=== PATIENT | female | born 1960 | race Caucasian/White ===

== ENCOUNTER 2020-11-10 01:04 | Inpatient (IN) | payer OTHER, MEDICARE ==
[2020-11-10 01:32] LABS: Hemoglobin 14.3 g/dL (12.0-16.0); Mean Corpuscular HGB CONC 32.1 g/dL (32.0-36.0); Mean Corpuscular Hemoglobin 27.1 pg (27.0-31.0); Mean Corpuscular Volume 84.5 fL (78.0-98.0); Mean Platelet Volume 8.8 fL (7.4-10.4); Platelet Count 397 thou/uL (130-400); RBC Distribution Width 15.1 % (11.5-14.5); Red Blood Cell (RBC) Count 5.27 mill/uL (4.20-5.40); White Blood Cell (WBC) Count 19.7 thou/uL (4.8-10.8)
[2020-11-10 01:49] LABS: ALT (SGPT) 21 U/L (8-55); AST (SGOT) 91 U/L (5-34); Acetaminophen Less than 6.0 mcg/mL (10.0-30.0); Albumin 3.8 g/dL (3.5-5.0); Alcohol Less than 10 mg/dL (Less than 10); Alkaline Phosphatase 133 U/L (40-110); Anion Gap 25 mmol/L (10-20); BUN (Urea Nitrogen) 19 mg/dL (9.8-20.1); Bilirubin, Total 0.4 mg/dL (0.2-1.2); Calc. Creatinine Clearance 0 mL/min (70-130); Calcium 8.9 mg/dL (7.8-10.44); Carbon Dioxide 13 mmol/L (22-29); Chloride 102 mmol/L (98-107); Glucose 163 mg/dL (70-105); Potassium 4.6 mmol/L (3.5-5.1); Protein, Total 7.8 g/dL (6.0-8.3); Salicylate Less than 8.0 mg/dL (15.0-30.0); Sodium 135 mmol/L (136-145)
[2020-11-10 01:52] LABS: Band 5 % (5-11); Lymphocytes 11 % (21-51); MDiff Complete? YES; Neutrophil 84 % (42-75)
[2020-11-10] MEDS ORDERED: Dextrose 5% in Water 1,000 ML IV PRN (04:28)
[2020-11-10] MEDS ORDERED: hydrALAZINE 20 MG/ML VIAL SLOW IVP PRN (04:28)
[2020-11-10] MEDS ORDERED: Dextrose 50% Abboject 50 ML SYRINGE SLOW IVP PRN (04:28)
[2020-11-10] MEDS ORDERED: Ondansetron ODT 4 MG TAB PO PRN (04:28)
[2020-11-10] MEDS ORDERED: Ibuprofen 600 MG TAB PO PRN (04:53)
[2020-11-10 05:50] VITALS: BMI 40.5
[2020-11-10] MEDS: traMADol HCl 50 MG TAB PO SCH ×3 (06:34→18:16)
[2020-11-10] MEDS: Acetaminophen 325 MG TAB PO SCH ×3 (06:34→16:43)
[2020-11-10] MEDS ORDERED: Lactated Ringer's 1,000 ML IV SCH (06:45)
[2020-11-10 08:25] LABS: Magnesium 2.2 mg/dL (1.6-2.6)
[2020-11-10] MEDS ORDERED: HumaLOG 300 UNITS/3 ML VIAL SC PRN (08:58)
[2020-11-10] MEDS ORDERED: Sodium Chloride 0.9% 500 ML IV SCH (10:15)
[2020-11-10 10:20] LABS: #Eosinphils 0.1 thou/uL (0.0-0.7); #Lymphocytes 1.3 thou/uL (1.20-3.40); #Monocytes 0.4 thou/uL (0.11-0.59); #Neutrophils 15.2 thou/uL (1.40-6.50); %Basophils 0.1 % (0.0-1.0); %Eosinophils 0.3 % (0.0-10.0); %Lymphocytes 7.4 % (21.0-51.0); %Monocytes 2.3 % (0.0-10.0); %Neutrophils 89.9 % (42.0-75.0); Mean Corpuscular HGB CONC 32.7 g/dL (32.0-36.0); Mean Corpuscular Hemoglobin 27.6 pg (27.0-31.0); Mean Corpuscular Volume 84.4 fL (78.0-98.0); Mean Platelet Volume 8.3 fL (7.4-10.4); Platelet Count 464 thou/uL (130-400); White Blood Cell (WBC) Count 16.9 thou/uL (4.8-10.8)
[2020-11-10] MEDS: Polyethylene Glycol 3350 17 GM Packet PO SCH (10:21)
[2020-11-10 10:31] LABS: Thyroid Stimulating Hormone 0.0583 uIU/mL (0.35-4.94)
[2020-11-10 10:43] LABS: Anion Gap 25 mmol/L (10-20); BUN (Urea Nitrogen) 21 mg/dL (9.8-20.1); Calc. Creatinine Clearance 93 mL/min (70-130); Carbon Dioxide 12 mmol/L (22-29); Chloride 103 mmol/L (98-107); Glucose 307 mg/dL (70-105); Magnesium 2.2 mg/dL (1.6-2.6); Phosphorus 5.2 mg/dL (2.3-4.7); Potassium 4.7 mmol/L (3.5-5.1); Sodium 135 mmol/L (136-145)
[2020-11-10] MEDS: Famotidine 20 MG TAB PO SCH ×2 (10:44→23:38)
[2020-11-10] MEDS: Propranolol 40 MG TAB PO SCH ×2 (10:44→23:38)
[2020-11-10 10:56] LABS: Hemoglobin A1c Greater than 14.0 % (4.0-6.0)
[2020-11-10] MEDS: Sodium Chloride 0.9% 1,000 ML IV SCH ×2 (11:29→18:16)
[2020-11-10] MEDS ORDERED: Iopamidol-370 76% 500 ML 1 ML ONE (12:00)
[2020-11-10] MEDS ORDERED: Lantus 1000 UNITS/10 ML VIAL SC SCH (14:45)
[2020-11-10 17:14] LABS: Bacteria/HPF 2+ HPF (None Seen); Bilirubin 2+ (Negative); Blood, Urine 2+ (Negative); Clarity Turbid (Clear); Glucose, Urine (Dipstick) 30 mg/dL (Negative); Ketone, Urine 20 mg/dL (Negative); Leukocyte Negative Leu/uL (Negative); Nitrite Negative (Negative); Protein, Urine (Dipstick) 200 mg/dL (Neg-Trace); RBC/HPF 21-50 HPF (0-3); Squamous Epithelial 0-3 HPF (0-3); Transitional Epithelial 0-3 HPF (None Seen); Urobilinogen 3 mg/dL (Less than 2); WBC/HPF 21-50 HPF (0-3)
[2020-11-10 17:16] LABS: Specific Gravity, Urine 1.056 (1.002-1.036)
[2020-11-10 17:59] LABS: SARS-CoV-2 PCR by NAA Not Detected (NotDetected)
[2020-11-10 19:17] LABS: Anion Gap 19 mmol/L (10-20); BUN (Urea Nitrogen) 25 mg/dL (9.8-20.1); Calc. Creatinine Clearance 76 mL/min (70-130); Calcium 7.8 mg/dL (7.8-10.44); Carbon Dioxide 16 mmol/L (22-29); Chloride 106 mmol/L (98-107); Glucose 157 mg/dL (70-105); Magnesium 2.2 mg/dL (1.6-2.6); Phosphorus 3.8 mg/dL (2.3-4.7); Potassium 3.8 mmol/L (3.5-5.1); Sodium 137 mmol/L (136-145)
[2020-11-10] MEDS ORDERED: traMADol HCl 50 MG TAB PO PRN (20:00)
[2020-11-10 20:43] LABS: Actual Bicarbonate (HCO3v) 19 mEq/L (22-28); Base Excess -3.2 mEq/L (-2.0 to +3.0); Calcium, Ionized (venous) 0.97 mmol/L (1.16-1.32); Chloride (VBG) 107 mmol/L (98-106); Hemoglobin (Hb) 11.1 g/dL (11.7-16.0); Potassium (VBG) 3.76 mmol/L (3.70-5.30); Sodium 137.6 mmol/L (133-146); pH (venous) 7.47 (7.32-7.43)
[2020-11-10] MEDS ORDERED: Calcium Chloride 13.6 MEQ in Sodium Chloride 0.9% 100 ML IVPB SCH (23:00)
[2020-11-11] MEDS: Acetaminophen 325 MG TAB PO SCH ×4 (05:47→16:07)
[2020-11-11] MEDS: traMADol HCl 50 MG TAB PO SCH ×4 (05:49→11:14)
[2020-11-11 05:52] LABS: Bacteria/HPF None Seen HPF (None Seen); Bilirubin 1+ (Negative); Blood, Urine 3+ (Negative); Clarity Extra Turbid (Clear); Glucose, Urine (Dipstick) Normal (Negative); Ketone, Urine 40 mg/dL (Negative); Leukocyte 25 Leu/uL (Negative); Nitrite Negative (Negative); Protein, Urine (Dipstick) 70 mg/dL (Neg-Trace); RBC/HPF Greater than 50 HPF (0-3); Specific Gravity, Urine 1.041 (1.002-1.036); Urobilinogen Normal mg/dL (Less than 2); pH, Urine 5.5 (5.0-9.0)
[2020-11-11] MEDS: Polyethylene Glycol 3350 17 GM Packet PO SCH (08:23)
[2020-11-11] MEDS: Methimazole 10 MG TAB PO SCH (08:23)
[2020-11-11] MEDS: Famotidine 20 MG TAB PO SCH ×2 (08:23→20:30)
[2020-11-11] MEDS: Propranolol 40 MG TAB PO SCH ×2 (08:23→20:30)
[2020-11-11 08:38] LABS: Anion Gap 17 mmol/L (10-20); BUN (Urea Nitrogen) 25 mg/dL (9.8-20.1); Calc. Creatinine Clearance 118 mL/min (70-130); Calcium 8.2 mg/dL (7.8-10.44); Carbon Dioxide 17 mmol/L (22-29); Chloride 107 mmol/L (98-107); Glucose 132 mg/dL (70-105); Magnesium 2.2 mg/dL (1.6-2.6); Phosphorus 2.4 mg/dL (2.3-4.7); Potassium 3.7 mmol/L (3.5-5.1); Sodium 137 mmol/L (136-145)
[2020-11-11] MEDS: DULoxetine 60 MG CAP PO SCH (09:07)
[2020-11-11] MEDS: Gabapentin 400 MG CAP PO SCH ×3 (09:10→20:31)
[2020-11-11] MEDS: Lantus 1000 UNITS/10 ML VIAL SC SCH (22:16)
[2020-11-12] MEDS: traMADol HCl 50 MG TAB PO SCH ×3 (01:11→12:00)
[2020-11-12 05:15] LABS: Anion Gap 15 mmol/L (10-20); BUN (Urea Nitrogen) 23 mg/dL (9.8-20.1); Calc. Creatinine Clearance 149 mL/min (70-130); Calcium 7.9 mg/dL (7.8-10.44); Carbon Dioxide 21 mmol/L (22-29); Chloride 105 mmol/L (98-107); Glucose 108 mg/dL (70-105); Magnesium 2.2 mg/dL (1.6-2.6); Phosphorus 2.4 mg/dL (2.3-4.7); Potassium 3.8 mmol/L (3.5-5.1); Sodium 137 mmol/L (136-145)
[2020-11-12 05:19] LABS: #Basophils 0.1 thou/uL (0.0-0.2); #Eosinphils 0.1 thou/uL (0.0-0.7); #Lymphocytes 2.1 thou/uL (1.20-3.40); #Monocytes 0.4 thou/uL (0.11-0.59); #Neutrophils 5.7 thou/uL (1.40-6.50); %Basophils 0.8 % (0.0-1.0); %Eosinophils 1.4 % (0.0-10.0); %Lymphocytes 24.5 % (21.0-51.0); %Monocytes 5.3 % (0.0-10.0); Hemoglobin 8.6 g/dL (12.0-16.0); Mean Corpuscular HGB CONC 33.2 g/dL (32.0-36.0); Mean Corpuscular Hemoglobin 28.3 pg (27.0-31.0); Mean Platelet Volume 8.2 fL (7.4-10.4); Platelet Count 254 thou/uL (130-400); Red Blood Cell (RBC) Count 3.05 mill/uL (4.20-5.40); White Blood Cell (WBC) Count 8.4 thou/uL (4.8-10.8)
[2020-11-12] MEDS: Acetaminophen 325 MG TAB PO SCH ×3 (05:54→11:56)
[2020-11-12] MEDS: Methimazole 10 MG TAB PO SCH (08:34)
[2020-11-12] MEDS: Gabapentin 400 MG CAP PO SCH ×3 (08:34→21:07)
[2020-11-12] MEDS: Propranolol 40 MG TAB PO SCH ×2 (08:34→21:06)
[2020-11-12] MEDS: DULoxetine 60 MG CAP PO SCH (08:34)
[2020-11-12] MEDS: Famotidine 20 MG TAB PO SCH ×2 (08:34→21:08)
[2020-11-12] MEDS: Polyethylene Glycol 3350 17 GM Packet PO SCH (08:36)
[2020-11-12] MEDS ORDERED: Acetaminophen/Codeine 30-300mg Tablet PO PRN (12:11)
[2020-11-12] MEDS: Acetaminophen/Codeine 30-300mg Tablet PO PRN (13:17)
[2020-11-12] MEDS: Nitrofurantoin Monohyd/M-Cryst 100 MG CAP PO SCH (21:08)
[2020-11-12] MEDS: Lantus 1000 UNITS/10 ML VIAL SC SCH (22:25)
[2020-11-13] MEDS: Acetaminophen/Codeine 30-300mg Tablet PO PRN ×2 (02:45→09:06)
[2020-11-13] MEDS: DULoxetine 60 MG CAP PO SCH (09:06)
[2020-11-13] MEDS: Nitrofurantoin Monohyd/M-Cryst 100 MG CAP PO SCH (09:06)
[2020-11-13] MEDS: Famotidine 20 MG TAB PO SCH (09:06)
[2020-11-13] MEDS: Polyethylene Glycol 3350 17 GM Packet PO SCH (09:08)
[2020-11-13] MEDS: Gabapentin 400 MG CAP PO SCH (09:14)
[2020-11-13] MEDS: Propranolol 40 MG TAB PO SCH (09:15)
[2020-11-13] MEDS: Methimazole 10 MG TAB PO SCH (09:15)
[2020-11-13 11:41] VITALS: TEMP 98.6
[2020-11-13 12:07] VITALS: BP 147/78
== END 2020-11-13 13:36 | disposition home or self-care (01) | DRG 638 ==
LOC: ERS 01:04 → SJJU 04:28 → 2SE 09:49
PROVIDERS: ADMIT Specialist; ATTEND Specialist
DX: E11.10 Type 2 diabetes mellitus with ketoacidosis without coma (principal); I47.1 Supraventricular tachycardia; Z88.0 Allergy status to penicillin; F32.9 Major depressive disorder, single episode, unspecified; I10 Essential (primary) hypertension; E03.9 Hypothyroidism, unspecified; S40.212A Abrasion of left shoulder, initial encounter; S10.91XA Abrasion of unspecified part of neck, initial encounter; V43.53XA Car driver injured in collision with pick-up truck in traffic accident, initial encounter; S62.307A Unspecified fracture of fifth metacarpal bone, left hand, initial encounter for closed fracture; E78.5 Hyperlipidemia, unspecified
CPT/HCPCS: 36415; 36416; 70450; 71045; 71260; 72125; 74177; 80048; 80053; 80307; 81001; 81003; 81015; 82010; 82805; 83036; 83605; 83735; 83880; 84100; 84146; 84436; 84443; 84480; 85025; 87045; 87046; 87324; 87427; 87449; 87635; 93005; 93010; 94640; G0390; J1815; J3490; J7620; Q0162; Q9967; U0003; U0005